=== PATIENT | male | born 2000 | race Caucasian/White ===

== ENCOUNTER 2021-07-16 20:48 | Emergency (ER) | payer OTHER, SELFPAY ==
[2021-07-16] MEDS ORDERED: Amoxicillin/Potassium Clav 875 MG TAB ONE (21:07)
== END 2021-07-16 21:11 | disposition home or self-care (01) ==
LOC: BURERS 20:48
DX: H66.92 Otitis media, unspecified, left ear (principal); H72.92 Unspecified perforation of tympanic membrane, left ear; H60.93 Unspecified otitis externa, bilateral; F17.210 Nicotine dependence, cigarettes, uncomplicated
CPT/HCPCS: 99283